=== PATIENT | male | born 1995 | race African-American/Black ===

== ENCOUNTER 2022-07-25 17:26 | Emergency (ER) | payer OTHER, SELFPAY ==
[2022-07-25 17:35] VITALS: BP 125/57; PULSE 60; RESP 18; TEMP 37; O2SAT 100
--- NOTE | 2022-07-25 17:45 | ED.EAR ---
HPI - Ear Problem General Chief complaint: Skin/Abscess/Foreign Body Stated complaint: Skin Problem Source: patient Mode of arrival: ambulatory Limitations: no limitations History of Present Illness HPI Narrative: 27-year-old male presented for complaints of lump behind the left ear. First noticed today. He denies redness, tenderness, or warmth to the site. He denies any associated sinus congestion, ear pain, sore throat, rash or any other symptoms. Denies tinnitus, hearing changes, or dizziness. Has not taken anything for symptoms. Related Data Allergies Allergy/AdvReac Type Severity Reaction Status Date / Time No Known Allergies Allergy Verified 07/25/22 17:46 Review of Systems Review of Systems: CONSTITUTIONAL: Denies body aches, fever, chills, or sweats. EYES: Denies visual changes, redness, or discharge. ENT: Denies rhinorrhea, congestion CARDIOVASCULAR: Denies chest pain, palpitations, or edema. RESPIRATORY: Denies cough or dyspnea. GASTROINTESTINAL: Denies abdominal pain, nausea, vomiting, or diarrhea. SKIN: per HPI MUSCULOSKELETAL: Denies back pain, joint pain, or myalgia. NEUROLOGIC: Denies headache, numbness, tingling, or weakness. [facility] Past Medical History Medical History (Updated 07/25/22 @ 17:59 by Meenakshi Mata, WAREHOUSE AND RECEIVING [employer]PERVISOR) No pertinent past medical history Comments At time of signature, I have reviewed and agree with nursing past medical, surgical, social and family history unless otherwise noted. Please see nursing chart for further information. There is no relevant family history pertinent to the presenting complaint Exam Narrative: GENERAL: Well-appearing HEAD: Normocephalic, atraumatic. EYES: conjunctivae clear, and EOMI. ENT: Mucous membranes moist. Left posterior auricular subcutaneous nodule; no redness, tenderness, no fluctuance or drainage. Bilateral TMs normal light reflex. Oropharynx without edema, erythema or lesions. NECK: Supple. full ROM CHEST: Clear to auscultation. HEART: Regular rate and rhythm. SKIN: Warm, dry. NEURO: Alert and oriented x3. Course Course Emergency Course: Patient is aware of diagnosis, understands and agrees to treatment plan. Anticipatory guidance given. Patient agrees to follow-up as directed and is aware of reasons to seek care at the emergency department. Portions of this record may have been created with voice recognition software Level of Care: Express Care Visit Vital Signs Vital signs: Vital Signs Temperature 98.6 F 07/25/22 17:35 Pulse Rate 60 07/25/22 17:35 Respiratory Rate 18 07/25/22 17:35 Blood Pressure 125/57 L 07/25/22 17:35 Pulse Oximetry 100 07/25/22 17:35 Oxygen Delivery Room Air 07/25/22 17:35 Temperature 98.6 F 07/25/22 17:35 Pulse Rate 60 07/25/22 17:35 Respiratory Rate 18 07/25/22 17:35 Blood Pressure 125/57 L 07/25/22 17:35 Pulse Oximetry 100 07/25/22 17:35 Oxygen Delivery Room Air 07/25/22 17:35 Reviewed Medical Decision Making MDM Narrative Medical decision making narrative: Patient presented with complaint of nodule behind the left ear today. Symptoms are consistent with lymphadenopathy. Does not appear to be mastoiditis at this time, however we discussed possible etiologies and he will continue to monitor. He denies any illness. Will send prescription for penicillin. Advised supportive measures and signs/symptoms to go to the ER. Pt is appropriate for outpt treatment and f/u. Differential Diagnosis Differential Diagnosis: otitis externa, TM rupture, cholesteatoma, foreign body, auricular perichondritis, otitis media, bullous myringitis, mastoiditis Vital Signs Vital Signs: Vital Signs Temperature 98.6 F 07/25/22 17:35 Pulse Rate 60 07/25/22 17:35 Respiratory Rate 18 07/25/22 17:35 Blood Pressure 125/57 L 07/25/22 17:35 Pulse Oximetry 100 07/25/22 17:35 Oxygen Delivery Room Air 07/25/22 17:35 Temperature 98.6 F 07/25/22 17
== END 2022-07-25 18:00 | disposition home or self-care (01) ==
PROVIDERS: Emergency Provider Nurse Practitioner Family; PCP Emergency Medicine
DX: R22.0 Localized swelling, mass and lump, head (principal)
CPT/HCPCS: 99213; G0463

== ENCOUNTER 2023-12-26 14:22 | Emergency (ER) | payer OTHER, SELFPAY ==
[2023-12-26 14:27] VITALS: BP 150/72; PULSE 62; RESP 16; TEMP 37.2; O2SAT 100
--- NOTE | 2023-12-26 15:25 | ED.ALLEREA ---
HPI - Allergic Reaction General Chief complaint: Allergic Reaction Stated complaint: Rash Source: patient Mode of arrival: ambulatory Limitations: no limitations History of Present Illness HPI narrative: Patient presents for evaluation of a generalized pruritic rash for the last 2 days. He indicates he was started on amoxicillin and ibuprofen following dental extractions 9 days ago. He believes his symptoms are related to one of the two medications. He has not had any new foods as of late. Denies any new lotions, soaps, detergents or topical products. He stopped taking both medications. No difficulty breathing or swallowing. No history of similar symptoms. Related Data Home Medications Medication Instructions Recorded Confirmed amoxicillin 875 mg tablet mg 12/26/23 ibuprofen 800 mg tablet mg 12/26/23 Allergies Allergy/AdvReac Type Severity Reaction Status Date / Time No Known Allergies Allergy Verified 12/26/23 14:26 Review of Systems Review of Systems: CONSTITUTIONAL: Denies fever, chills, or sweats. EYES: Denies visual changes, redness, or discharge. ENT: Denies rhinorrhea, congestion, sore throat, or otalgia. CARDIOVASCULAR: Denies chest pain, palpitations, or edema. RESPIRATORY: Denies cough or dyspnea. GASTROINTESTINAL: Denies abdominal pain, nausea, vomiting, or diarrhea. GENITOURINARY: Denies dysuria or hematuria. SKIN: Reports generalized pruritic rash MUSCULOSKELETAL: Denies back pain, joint pain, or myalgia. NEUROLOGIC: Denies headache, numbness, dizziness, or weakness. PSYCHIATRIC: Denies anxiety or depression. PMFSH Past Medical History Medical History No pertinent past medical history Surgical History Surgical History No pertinent past surgical history Family History Family History Mother Family history non-contributory Social History Social History Smoking status: Never smoker Alcohol intake: current Alcohol use details: social Substance use: never Gender identity (if verbalized by the patient): Male Spiritual care concerns: No Exam Narrative: GENERAL: Well-appearing, well-nourished, and in no acute distress. HEAD: Normocephalic, atraumatic. EYES: PERRLA and EOMI. ENT: Nares clear, no rhinorrhea or epistaxis. Mucous membranes moist. Oropharynx without tonsillar hypertrophy exudate or other lesions. Bilateral TMs pearly spicer nonbulging NECK: Supple. No adenopathy or masses. No carotid bruits or JVD CHEST: Clear to auscultation. No respiratory distress. No wheezes rales or rhonchi HEART: Regular rate and rhythm. No murmur heard. Normal peripheral pulses. ABDOMEN: Soft, nontender, nondistended, normal active bowel sounds. EXTREMITIES: Normal range of motion. No edema. SKIN: There are raised areas erythema noted to his face, torso, extremities x 4 NEURO: No focal deficits. Alert and oriented x3. PSYCH: Normal mood and affect. Course Course Emergency Course: This is a 28-year-old male who presented for evaluation of a pruritic generalized rash. This may be related to his amoxicillin or ibuprofen. He has since stopped taking the medications. I think he can remain off as he does not have any signs of infection today. We will start prednisone and vistaril. He should follow up with primary provider and go to the ER for difficulty breathing/swallowing or worsening symptoms. Pt in agreement with plan of care. Level of Care: Express Care Visit Vital Signs Vital signs: Vital Signs Temperature 37.2 C 12/26/23 14:27 Pulse Rate 62 12/26/23 14:27 Respiratory Rate 16 12/26/23 14:27 Blood Pressure 150/72 H 12/26/23 14:27 Pulse Oximetry 100 12/26/23 14:27 Oxygen Delivery Room Air 12/26/23 14:27
== END 2023-12-26 14:54 | disposition home or self-care (01) ==
PROVIDERS: Emergency Provider Nurse Practitioner
DX: T78.40XA Allergy, unspecified, initial encounter (principal)
CPT/HCPCS: 99213; G0463